=== PATIENT | male | born 1985 | race Caucasian/White ===

== ENCOUNTER 2017-07-16 07:40 | Emergency (ER) | payer OTHER ==
--- NOTE | 2017-07-16 09:37 | UC ---
Complaint Male HPI - HPI Summary HPI Summary: 32 year old male with left testicle pain. "I think I have infection in my left testicle". Pt states he's had some redness/tenderness on LEFT testicle since Thursday afternoon. Denies injury to area. [ End ] - History of Current Complaint Chief Complaint: UCGeneralIllness Stated Complaint: PERSONAL Time Seen by Provider: 07/16/17 08:11 Hx Obtained From: Patient Onset/Duration: Gradual Onset Timing: Constant Severity Initially: Mild Severity Currently: Moderate Location: Testicle Character: Constant Pressure Aggravating Factor(s): Nothing Alleviating Factor(s): Nothing - Risk Factors Testicular Torsion: Negative - Allergies/Home Medications Allergies/Adverse Reactions: Allergies Allergy/AdvReac Type Severity Reaction Status Date / Time No Known Allergies Allergy Verified 07/16/17 07:45 PMH/Surg Hx/FS Hx/Imm Hx Previously Healthy: Yes - Surgical History Surgical History: None - Family History Known Family History: Negative: Respiratory Disease - Social History Occupation: Employed Full-time Lives: With Family Alcohol Use: Occasionally Substance Use Type: None Smoking Status (MU): Never Smoked Tobacco - Immunization History Most Recent Influenza Vaccination: no Review of Systems Genitourinary: Negative, Other - testicular pain left Is Patient Immunocompromised?: No All Other Systems Reviewed And Are Negative: Yes Physical Exam Triage Information Reviewed: Yes Appearance: Well-Appearing, Well-Nourished Vital Signs: Initial Vital Signs Temp 97.9 F 07/16/17 07:45 Pulse 75 07/16/17 07:45 Resp 16 07/16/17 07:45 BP 131/82 07/16/17 07:45 Pulse Ox 99 07/16/17 07:45 Vital Signs Reviewed: Yes Eye Exam: Normal Neck: Positive: 1 Respiratory Exam: Normal Cardiovascular Exam: Normal Abdominal Exam: Normal Abdomen Description: Positive: Other: - left testicular tenderness . no masses. no hernia.. Negative: CVA Tenderness (R), CVA Tenderness (L) Musculoskeletal Exam: Normal Neurological Exam: Normal Psychological Exam: Normal Skin Exam: Normal Diagnostics - Laboratory Diagnostic Studies Completed/Ordered: IMPRESSION: NO EVIDENCE OF TESTICULAR MASS OR TORSION. SMALL BILATERAL HYDROCELES. Complaint Male Course/Dx - Course Course Of Treatment: treat clinically . RTO if any concerns - Differential Dx/Diagnosis Differential Diagnosis/HQI/PQRI: Epididymitis, Testicular Torsion, Trauma Provider Diagnoses: epididymitis Discharge - Discharge Plan Condition: Good Disposition: HOME Prescriptions: Doxycycline Hyclate [[id number] [id number]] 100 mg PO BID #20 cap Patient Education Materials: Epididymitis (ED) Forms: *Work Release Referrals: No Primary Care Phys,NOPCP [Primary Care Provider] - 4 Days (If not improved )
--- NOTE | 2017-07-16 10:20 | RAD ---
INDICATION: Left testicular pain and swelling COMPARISON: None TECHNIQUE: Duplex interrogation of the scrotum was performed. FINDINGS: Testicles: The testicles are Normal in size and echogenicity. There is no evidence of testicular mass. There is symmetric flow on Doppler interrogation. There is no evidence of torsion.. The right testis measures 4.0 x 2.1 x 2.8 cm and the left 4.1 x 2.1 x 2.8 cm. There is symmetric flow on Doppler interrogation. Epididymides: There is no evidence of an epididymal mass. The epididymides are normal in size. There is symmetric flow on Doppler interrogation. The right epididymal head measures 1.2 x 1.0 cm and the left 1.0 x 1.0 cm. Hydroceles: Small bilateral hydroceles. Varicoceles: None. Other: None. IMPRESSION: NO EVIDENCE OF TESTICULAR MASS OR TORSION. SMALL BILATERAL HYDROCELES.
[2017-07-16 10:22] VITALS: BP 137/88
== END 2017-07-16 10:28 | disposition home or self-care (01) ==
LOC: UCCORT 07:40
DX: N45.1 Epididymitis (principal); N43.3 Hydrocele, unspecified
CPT/HCPCS: 76870; 99212; G0463